=== PATIENT | female | born 1980 | race Hispanic/Latino ===

== ENCOUNTER 2016-12-28 19:24 | Inpatient (IN) | payer MEDICAID ==
[~2016-12-28] VITALS: Ht 148.3 cm; Wt 70.3 kg
[~2016-12-28 19:24] MED LIST: PREN1TAB47 PO
[2016-12-28] MEDS ORDERED: Lactated Ringer's 1,000 ML IV PRN (19:46)
[2016-12-28] MEDS ORDERED: Hemorrhage Kit, Post Partum XX ONE (19:50)
[2016-12-28] MEDS ORDERED: Oxytocin 10 Unit/mL Inj IM PRN (19:50)
[2016-12-28] MEDS ORDERED: Sodium Chloride LOK Flush 10 mL Syringe IVFLUSH PRN (19:50)
[2016-12-28] MEDS ORDERED: Methylergonovine 0.2 mg/mL Inj IM PRN (19:50)
[2016-12-28] MEDS ORDERED: Ondansetron 2 mg/mL 2 mL Inj IVPUSH PRN ×2 (19:50→20:45)
[2016-12-28] MEDS ORDERED: Carboprost 250 mCg/mL Inj IM PRN (19:50)
[2016-12-28] MEDS ORDERED: fentaNYL-PF 50 mCg/mL 2 mL Inj IVPUSH PRN (19:50)
[2016-12-28] MEDS ORDERED: Oxytocin 30 Units/500 mL LR 30 UNITS in IV Premix 1 EACH IV PRN ×2 (19:50→21:50)
[2016-12-28 20:41] LABS: Mean Corpuscular Volume 95.1 fL (81-100)
[2016-12-28] MEDS ORDERED: Lactated Ringer's 500 ML IV ONE (20:44)
[2016-12-28] MEDS ORDERED: Lactated Ringer's 1,000 ML IV SCH ×2 (20:44→21:48)
[2016-12-28] MEDS ORDERED: fentaNYL 2 mCg/mL-Bupiv 0.125% 100 ML EPIDURAL SCH (20:45)
[2016-12-28] MEDS ORDERED: Atropine 1 mg/10 mL (Code) Syringe IVPUSH PRN (20:45)
[2016-12-28] MEDS ORDERED: EPHEDrine Sulfate 50 mg/mL Inj IVPUSH PRN (20:45)
--- NOTE | 2016-12-28 21:30 | PCM.HPANE ---
Patient Data Date of Service: Dec 28, 2016 Surgeon Admitting Provider:Michelle Joyner MD Attending Provider:Michelle Joyner MD Primary Care Physician:[facility] Other Provider:Suman Spivey Anesthesia Reason for Visit Active Labor ACTIVE LABOR Ht/WT & BMI Height (Centimeters): 148 Weight (Kilograms): 70.3 Body Mass Index 32.0 Allergies Coded Allergies: No Known Allergies (Unverified Allergy, Unknown, 12/28/16) Past Anesthesia History Anesthesia History: Denies:: Abnormal Airway, Anesthesia Reactions Diabetes History Hx Diabetes?: No MRSA MRSA: No Medications Hypertension Medication: No Home Meds Incl Beta Gene: No Reported Medications Vit/Fe Fumarate/Fa-Expunged Drug, Do (-Expunged Drug, Do Not Renew!)1 Tab Tablet1 Tab PO DAILY 10/23/12 History History of ENT Problems?: No HEENT History: Denies:: Abnormal Airway Difficult Intubation Denture Type: None Teeth Condition: Within Normal Limits Hx of Heart Problems?: No Cardiovascular History: Denies:: Hypertension Irregular Heartbeat Hx of Respiratory Problem?: No Respiratory History: Denies:: Asthma Hx Neurologic Problems?: No Hx of GI Problems?: No Hx of Problems?: No HX of Peritoneal Dialysis: No Female Hx: Positive for:: Currently Hx Musculoskeletal Problems?: No Hx of Psycho/Social Problems?: No Hx Surgeries?: No (Hx of previous labor epidural) Hx Any Other Health Problems?: Yes (Hx thyroiditis after first ) Other History: Positive for:: Endocrine Disease Hx Alcohol Use: NoHx Substance Use: No Smoking Status: Never Smoker Have You Smoked inLast 12 mo: No Stop/Bang Treated for Sleep Apnea?: No Do You Have a CPAP Machine?: No MEGHAN Risk Assessment: Low Risk, <3 Yes Risk Assessment Category Category 1A: Patient has history of documented sleep apnea, and HAS NOT received any narcotic, sedative or anesthesia administration during this stay. Category 1B: Patient has history of documented sleep apnea, and HAS received any narcotic , sedative or anesthesia administration during this stay Category 2: Patient has SUSPECTED Obstructive Sleep Apnea, and HAS received any narcotic , sedative or anesthesia administration during this stay. Category 3: Patient has SUSPECTED Obstructive Sleep Apnea and HAS NOT received narcotic, sedative or anesthesia administration during this stay. Category 4: Outpatient in Procedural Areas with known sleep apnea or who screen positive for High Risk via the STOP/BANG questionnaire. Exam Exam General Appearance: Alert, Oriented X3, Cooperative HEENT/AIRWAY: MP 2, Neck Movement (Full), Mouth Opening (Wide) Lungs: Clear to Auscultation, Normal Air Movement Heart: Regular Rate/Rhythm, Normal S1, Normal S2 Meds/Labs/Diagnostics Labs Test 12/28/16 20:25 White Blood Count 18.5th/mm3 (3.8-10.1) Red Blood Count 4.49mil/mm3 (3.90-5.20) Hemoglobin 14.8g/dL (12.0-15.6) Hematocrit 42.7% (35.0-46.0) Mean Corpuscular Volume 95.1fL (81-100) Mean Corpuscular Hemoglobin 33.0pg (27.0-35.0) Mean Corpuscular Hemoglobin Concent 34.7% (32.0-37.0) Red Cell Distribution Width 13.0% (12.3-15.4) Platelet Count 239bil/L (150-400) Plan Impression Patient chart reviewed, patient interviewed and anesthestic plan with risks, benefits, and alternatives discussed, and informed consent obtained. NPO per Anesth. Guidelines: No ASA Physical Status: ASA2 Mod Systemic Disease Anesthetic Plan: Epidural Bene/Risks/Altern/Consents: Yes HP Complete Prior to Induction: Yes Tonny Bingham MD Dec 28, 2016 20:45
[2016-12-28] MEDS ORDERED: GENTAMICIN IV ONE (21:50)
[2016-12-28] MEDS ORDERED: SODIUM CHLORIDE 0.9% IV ONE (21:50)
--- NOTE | 2016-12-28 22:08 | PCM.HPOB ---
Subjective Date of Service: Dec 28, 2016 Referring Provider: Admitting Physician: Michelle Joyner MD Primary Care Physician: [facility] Attending Physician: Michelle Joyner MD Chief Complaint Contractions. History of Present History of Present Illness 34 Y at 39w6d PAPA 12/29/16. Presented with C/o contractions found to be 7 cm and 100% , no membranes palpable. Pt report three episodes of fluid leakage since this morning (unknown time) fluid was yellow in color. Denies fever. Poblem List during : 1. HO thyroiditis (normal FSH and FT4 levels during current ) 2. H/O pancreatitis 3. H/O IOL for oligohydramions. 4. H/O episiotomy. 5. H/O depression. Past Medical History Obstetrical History: 2012 , at 40w5d , IOL for oligohydraminos. Episiotomy. Gynecologic History: LMP was certain, regular and not on BC. Medical History: See problem list during above. Surgical History: Episiotomy Hx Tobacco Use: No Hx Alcohol Use: No Hx Substance Use: No Past Family History Family History No Fhx of twins. Positive family history of congenital anomalies, ADHD Review of Systems ROS 10 points ROS is negative except for items in HPI. Allergy Coded Allergies: No Known Allergies (Unverified Allergy, Unknown, 12/28/16) Exam Vital Signs 110/57, Transient maternal tachycardia 105 currently at HR 86 100% O2 sat T 36.6 , Tmax 37.2 Exam FHT currently category 1, had a transient tachycardia with baseline 170's and accelerations to 190s, and early decelerations. Spontaneously baseline down to normal range 150's moderate variability, positive accelerations and no decelerations. Constitutional: Well-developed HEENT: Atraumatic Lungs: Clear to Auscultation Heart: Regular Rate/Rhythm, Normal S1, Normal S2 Abdomen: Gravid Extremities: Pulses Palpable x4 Neurological/Psychiatric: Alert, Oriented X3 Neuro: Grossly Neurologically Intact Additional Information EFW by Thom[employer] 7 lb Cervix: 6-7cm/100%, IUPC was placed without difficulty. Labs/Diagnostics Labs Laboratory Tests 72 Hours Test 12/28/16 20:25 White Blood Count 18.5th/mm3 (3.8-10.1) Red Blood Count 4.49mil/mm3 (3.90-5.20) Hemoglobin 14.8g/dL (12.0-15.6) Hematocrit 42.7% (35.0-46.0) Mean Corpuscular Volume 95.1fL (81-100) Mean Corpuscular Hemoglobin 33.0pg (27.0-35.0) Mean Corpuscular Hemoglobin Concent 34.7% (32.0-37.0) Red Cell Distribution Width 13.0% (12.3-15.4) Platelet Count 239bil/L (150-400) Thyroid Stimulating Hormone (TSH) 3.170uIU/mL (0.450-4.500) Free Thyroxine 0.80ng/dL (0.82-1.77) Maternal Blood Type: O (positive) Antibody Screen: negative at 7 weeks Group B Strep Results: Negative Rubella: Immune Additional Information HepBsAg Negative PRPR Non-reactive HIV nonreactive GC/CT screen negative 05/31/16 pap smear WNL, HPV negative 05/31/16 GDM screen negative(117) at 25 weeks OB Intrapartum Assessment/Plan Assessment 34 Y at 39w6d PAPA 12/29/16. 1. Active labor and SROM 2. Possible Chorioamnionitis * Possible prolonged rupture of membranes. * and maternal tachycardia, resolving. * Maternal leukocytes WBC 18 3. Labor dystocia No significant cervical change the last [address] 5. Possible subclinical hypothyroidism based on admission labs TSH (WNL) and free T4( low). Poblem List during : 1. HO thyroiditis (normal FSH and FT4 levels during current ) Possible subclinical hypothyroidism based on admission labs TSH and free T4 2. H/O pancreatitis 3. H/O IOL for oligohydramions. 4. H/O episiotomy. 5. H/O depression. Intrapartum plan Video funding coordinator was used to discuss plan of care offered expectant management vs augmentation and starting antibiotic for multiple risk factors for chorionionitis . Patient desires to start antibiotic and pitocin. Start Ampicillin and gentamicin Start augmentation with pitocin Franny Foster MD Dec 28, 2016 22:08
[2016-12-29] MEDS ORDERED: Sodium Chloride LOK Flush 10 mL Syringe IVFLUSH SCH (00:30)
[2016-12-29] MEDS ORDERED: Lactated Ringer's 1,000 ML IV SCH (02:28)
[2016-12-29] MEDS ORDERED: Oxytocin 30 Units/500 mL LR 30 UNITS in IV Premix 1 EACH IV PRN (02:30)
[2016-12-29] MEDS ORDERED: LANOlin HPA 7 Gm Ointment TOPICAL PRN (02:30)
[2016-12-29] MEDS ORDERED: Hemorrhage Kit, Post Partum XX ONE (02:30)
[2016-12-29] MEDS ORDERED: Oxytocin 10 Unit/mL Inj IM PRN (02:30)
[2016-12-29] MEDS ORDERED: oxyCODONE-Acetamin 5-325 mg Tablet PO PRN (02:30)
[2016-12-29] MEDS ORDERED: Carboprost 250 mCg/mL Inj IM PRN (02:30)
[2016-12-29] MEDS ORDERED: Ampicillin Inj 2,000 MG in 0.9% Sodium Chloride 100 ML IV SCH (02:30)
[2016-12-29] MEDS ORDERED: Witch Hazel-Glycerin Pads TOPICAL PRN (02:30)
[2016-12-29] MEDS ORDERED: Methylergonovine 0.2 mg/mL Inj IM PRN (02:30)
[2016-12-29] MEDS ORDERED: Benzocaine (Dermoplast) 20% 60 Gm Spray TOPICAL PRN (02:30)
--- NOTE | 2016-12-29 03:30 | OP ---
[address] [address] OPERATIVE REPORT PATIENT: EMMY MENDENHALL : 1980 MR#: [id number] ADMIT: 12/28/2016 JOB ID: [id number] DATE OF SURGERY: 12/29/2016 PREOPERATIVE DIAGNOSIS(ES): 1. Intrauterine at 40 weeks and 0 days gestation, active labor with spontaneous rupture of membranes. 2. Possible chorioamnionitis. 3. Possible subclinical hypothyroidism. POSTOPERATIVE DIAGNOSIS(ES): 1. Intrauterine at 40 weeks and 0 days gestation, active labor with spontaneous rupture of membranes. 2. Possible chorioamnionitis. 3. Possible subclinical hypothyroidism. 4. Status post spontaneous vaginal delivery. PROCEDURE: 1. Spontaneous vaginal delivery. 2. Repair of first-degree perineal laceration. SURGEON: Franny Foster MD. DELICATESSEN GOODS STOCK CLERK: None. ANESTHESIA: Epidural. ESTIMATED BLOOD LOSS: 350 mL. COMPLICATIONS: None. TIME OF DELIVERY: December 29, 2016, at 1:59 a.m. TIME OF PLACENTA DELIVERY: 2:03 a.m. OUTCOME: Female delivered in cephalic presentation in left occiput anterior position. Apgars 8 and 9 at one and five minutes respectively. Weight is still pending. Placenta delivered intact with three-vessel cord and was sent to Pathology for further evaluation for chorioamnionitis. PROCEDURE: This is a 34 years old 2, para 1-0-0-1, presented at 40 weeks and 0 days gestation with active labor and spontaneous rupture of membranes. Time of rupture was not identified. Patient reported three episodes of leaking fluid since earlier this morning, possible prolonged rupture for more than 12 hours. During labor, patient developed tachycardia with heart rate of 105 and tachycardia with a baseline of 170. Maternal leukocytosis was noted with white blood cells of 18.5. Secondary to possible prolonged rupture of membranes, the and maternal tachycardia, and the maternally could cytosis, the patient was started on antibiotic for possible chorioamnionitis. T-max is 37.2. Patient was started on ampicillin and gentamicin. At presentation, the cervix was 7 cm. On reassessment over two hours later cervix remained 6-7 cm. Pitocin was started for labor dystocia. Patient progressed and found to be completely dilated three and a half hours later at 1:16 a.m. on December 29, 2016. The patient pushed effectively to deliver over an intact perineum under epidural anesthesia. At 1:59, delivered a female in cephalic presentation in left occiput anterior position with no nuchal cord. Shoulders delivered without difficulty. was placed on the maternal abdomen. Delayed cord clamping was performed. After one minute, cord blood was collected for gases, then the placenta delivered spontaneously intact at 2:03 a.m. Oxytocin was started shortly before placenta delivery. Fundal massage was performed after delivery of the placenta. Firm uterus with estimated blood loss of 350 mL. Cytotec 800 mcg was placed rectally prophylactically for hemorrhage and perineum was examined. A first-degree laceration was repaired with 3-0 Vicryl in simple interrupted stitches. All instrument, needles and sponge counts were correct x2. IFranny MD was present and scrubbed for the entire procedure.
[2016-12-29] MEDS: Ascorbic Acid 500 mg Tablet PO SCH ×2 (08:39→19:22)
[2016-12-30 08:44] LABS: Mean Corpuscular Hemoglobin 32.7 pg (27.0-35.0); Mean Corpuscular Volume 95.8 fL (81-100)
--- NOTE | 2016-12-30 08:45 | PCM.DIOB ---
Obstetrical Disch Instruction Date of Service: Dec 30, 2016 Dates of Hospitalization Date of Hospital Admission Dec 28, 2016 at 19:45 Providers Admitting Physician: Michelle Joyner MD Primary Care Physician: [facility] Attending Physician: Michelle Joyner MD Discharge Diagnosis Discharge Diagnosis vaginal delivery PPD1 Problems: Diet Discharge Diet: No restrictions Activity Discharge Activity-General: Pelvic Rest for 6 weeks, Try not to overdue, Be up and about, Balance rest and activity, No lifting >15 pounds for 2 weeks Dressing and Incisional Care Hygiene: May shower, NO bathtub, hot tub or whirlpool Additional Instructions Discharge Instructions Please call office or go to ER if heavy vaginal bleeding, severe abdominal pain , foul smelling discharge, fever more than 100.4 or short of breath please call office to make appointment for 6 weeks after delivery Please keep the information from social work and use the resources if needed. No sex before you go back to office for follow up and have reliable control method Follow Up Plan Follow Up Plan 6 weeks Follow-up appointment: Weeks (6) Call your provider for: Fever or Chills, Shortness of breath, Heavy vaginal bleeding, Epigastric pain, Excessive constipation, Vaginal discomfort, Other ( decreased mood ) Karina Randhawa MD Dec 30, 2016 08:45
[2016-12-30] MEDS ORDERED: IBUP800T28 PO (08:47)
[2016-12-30] MEDS ORDERED: DOCU-41 PO (08:47)
[2016-12-30 09:42] VITALS: BP 96/51; PULSE 88; RESP 16
--- NOTE | 2016-12-30 12:54 | DIS ---
[address] [address] DISCHARGE SUMMARY PATIENT: EMMY MENDENHALL : 1980 MR#: [id number] ADMIT: 12/28/2016 JOB ID: [id number] DIS: 12/30/2016 This is a 36-year-old female. She is para 2 status post vaginal delivery. This is day one. Patient is doing well. The delivery itself was not complicated. She was suspected by possibly chorio but she has no fever after delivery. She had no foul-smelling discharge. She has no abnormal abdominal pain except crampy with contractions. Her lochia was moderate to minimal. She has no other discomfort. She voided well. She tolerated her diet, and she is ambulating well. PHYSICAL EXAMINATION: She has being afebrile after delivery. Her pulse in normal range. Blood pressure in normal range. Her abdomen is soft, nontender. Uterus is well contracted, nontender. Extremities: Nontender. Lochia moderate to minimal. No foul-smelling. LABORATORIES: Her CBC was drawn this morning which is her white count 18.5, her H and H was 14.8 over 42.7. Her platelet count was 239. ASSESSMENT AND PLAN: A 36-year-old female day one post vaginal delivery. Doing well. There are no signs of endometritis at this time. PLAN: To discharge patient to home. The patient is instructed that if there is heavy vaginal bleeding, severe abdominal pain, foul-smelling discharge, fever more than 100.4, she will need to call office or go to the ED for evaluation. She is instructed to call office to make appointment six weeks after delivery.
--- NOTE | 2017-01-01 16:54 | PATH ---
SURGICAL PATHOLOGY Attending Physician:Franny Foster CASE STATUS: Signed Out PATIENT NAME: EMMY MENDENHALL PID: [id number] : 1980 DATE COLLECTED:12/28/2016 00:00 SPECIMEN: Placenta CLINICAL HISTORY: CHORIOAMNIONITIS, SPONTANEOUS VAGINAL DELIVERY 1). PLACENTA FINAL DIAGNOSIS: 1.PLACENTA: CASTRO PLACENTA WITH: 1. ACUTE CHORIOAMNIONITIS. 2. FURCATE INSERTION OF UMBILICAL CORD. ICD10 O41.1 O43.8 GROSS DESCRIPTION: The specimen is received in formalin, labeled with the patient's name and consists of an intact placenta and includes placental disc (479 g, 20.5 x 18.5 x 2.5 cm), umbilical cord (length-11.0 cm, diameter-1.5 x 0.9 cm) and membranes. The membranes are ruptured 3.5 cm from the free edge of the placenta and are semi-translucent. The umbilical cord has a furcate insertion 5.8 cm from the edge of the placenta and contains 3 vessels. The surface is smooth and shiny with no evidence of meconium. The maternal surface is dark maroon with normal cotyledon formation. The placental disc is spongy with no hematomas, infarcts, nodules, masses, or lesions identified. Section code: (A) edge of placenta with membranes, umbilical cord; (B, C, D-E) placenta, 3 full thickness sections. 12/30/16 JM MICRO DESCRIPTION: See diagnosis. ICD-9 CODES: CPT CODES: 1: 44979 Electronically Signed Out Angelique Castanon MD [facility] [address], [place] [address] Technical component performed at [facility], [address] [place] [address] Ave[address], [place], [address]
== END 2016-12-30 13:55 | disposition home or self-care (01) | DRG 560 ==
LOC: FBCO 19:24 → FBC 19:45
PROVIDERS: ADMIT Obstetrics & Gynecology; ATTEND Obstetrics & Gynecology
PROC: 10E0XZZ Delivery of Products of Conception, External Approach (ICD-10-PCS; principal; 2016-12-29)
PROC: 0HQ9XZZ Repair Perineum Skin, External Approach (ICD-10-PCS; 2016-12-29)
DX: O41.1230 Chorioamnionitis, third trimester, not applicable or unspecified (principal); E02 Subclinical iodine-deficiency hypothyroidism; Z37.0 Single live birth; Z3A.39 39 weeks gestation of pregnancy; O66.9 Obstructed labor, unspecified; O99.284 Endocrine, nutritional and metabolic diseases complicating childbirth; O76 Abnormality in fetal heart rate and rhythm complicating labor and delivery; O70.0 First degree perineal laceration during delivery